=== PATIENT | female | born 1975 | race Caucasian/White ===

== ENCOUNTER 2021-10-11 10:02 | Emergency (ER) | payer OTHER, SELFPAY ==
[2021-10-11 10:21] VITALS: BP 117/77; PULSE 60; RESP 18; TEMP 36.6; O2SAT 100
--- NOTE | 2021-10-11 10:42 | ED.EYEPROB ---
HPI - Eye Problem General Chief complaint: Eye Problems Stated complaint: rt eye irritation Time Seen by Provider: 10/11/21 10:24 Source: patient and RN notes reviewed Mode of arrival: ambulatory Limitations: no limitations History of Present Illness HPI Narrative: Patient presents today complaining of itching and irritation with redness to the right eye since yesterday. States she woke up this morning with matting and crusting to the eye with some mild increased tearing. Denies vision changes, photophobia. Denies recent illness. She used some clear eyes eyedrops with some mild relief. chief complaint: eye redness Related Data Allergies Allergy/AdvReac Type Severity Reaction Status Date / Time No Known Allergies Allergy Mild Verified 10/11/21 10:25 Review of Systems Review of Systems: CONSTITUTIONAL: Denies body aches, fever, chills, or sweats. EYES: Denies visual changes. + Right eye redness and crusting ENT: Denies rhinorrhea, congestion, sore throat, or otalgia. CARDIOVASCULAR: Denies chest pain, palpitations, or edema. RESPIRATORY: Denies cough or dyspnea. GASTROINTESTINAL: Denies abdominal pain, nausea, vomiting, or diarrhea. GENITOURINARY: Denies dysuria or hematuria. SKIN: Denies rash, itching, or wounds. MUSCULOSKELETAL: Denies back pain, joint pain, or myalgia. NEUROLOGIC: Denies headache, numbness, tingling, or weakness. PSYCH: Denies depression or anxiety. [facility] Past Medical History Medical History (Updated 10/11/21 @ 10:45 by Milla Haney, [facility], ) Delivery with history of Comments At time of signature, I have reviewed and agree with nursing past medical, surgical, social and family history unless otherwise noted. Please see nursing chart for further information. There is no relevant family history pertinent to the presenting complaint Exam Narrative: GENERAL: Well-appearing, well-nourished, and in no acute distress. HEAD: Normocephalic, atraumatic. EYES: EOMI. PERRL. Left eye: Slightly injected conjunctiva without drainage. Lids and lashes normal. Right eye: Mildly injected conjunctiva without active drainage. Lids and lashes normal. ENT: Mucous membranes pink and moist. NECK: Normal AROM. CHEST: No respiratory distress. EXTREMITIES: Normal range of motion. No edema. SKIN: Warm, dry, no rash. Capillary refill normal. Normal skin turgor. NEURO: No focal deficits. Alert and oriented x3. Gait steady. PSYCH: Normal affect. No signs of depression or anxiety. Course Course Level of Care: Express Care Visit Vital Signs Vital signs: Vital Signs Temperature 97.9 F 10/11/21 10:21 Pulse Rate 60 10/11/21 10:21 Respiratory Rate 18 10/11/21 10:21 Blood Pressure 117/77 10/11/21 10:21 Pulse Oximetry 100 10/11/21 10:21 Temperature 97.9 F 10/11/21 10:21 Pulse Rate 60 10/11/21 10:21 Respiratory Rate 18 10/11/21 10:21 Blood Pressure 117/77 10/11/21 10:21 Pulse Oximetry 100 10/11/21 10:21 Reviewed MDM - Eye Problem Differential Diagnosis Differential diagnosis: Likely corneal abrasion and conjunctivitis Critical Care Time Critical Care Time Critical Care Time: No Discharge Plan Discharge Clinical Impression: Acute conjunctivitis, bilateral Qualifiers: Acute conjunctivitis type: unspecified Qualified Code(s): H10.33 - Unspecified acute conjunctivitis, bilateral Patient Disposition: Home, Self-Care Condition: Stable Instructions: Conjunctivitis (ED) Additional Instructions: Your symptoms are likely due to allergic pinkeye. Try some drops such as Zaditor to see if this helps with your symptoms. If your symptoms do not improve, black pickler your antibiotic eyedrops at the pharmacy and use as directed. Follow-up with an eye doctor in 3 to 4 days if symptoms are not improving. Patient Language: Luxembourgish Prescriptions: New polymyxin B sulf-trimethoprim [Polytrim] 10,000 unit- 1 mg/mL drops 1 drp EACH EYE Q3H 7 Days Qty:
== END 2021-10-11 10:48 | disposition home or self-care (01) ==
PROVIDERS: Emergency Provider Nurse Practitioner
DX: H10.33 Unspecified acute conjunctivitis, bilateral (principal)
CPT/HCPCS: 99213; G0463